=== PATIENT | female | born 1995 | race Caucasian/White ===

== ENCOUNTER 2017-12-13 18:36 | Emergency (ER) | payer OTHER ==
[~2017-12-13] VITALS: Ht 167.6 cm; Wt 66.7 kg
[~2017-12-13 18:36] MED LIST: AZIT250 PO; BENZ100A PO; HYDACE5 PO; IBUP400; METO10 PO; MULVITMINE PO; ONDA4 PO; PRENATAL CAPLE1 EACH PO; PROM25 PO; PROM25S PR; RXHYD5325 PO; RXONDA4ODT MM; VITAMIN B-650 MG; Zofran Odt4 MG SL
[2017-12-13 19:37] LABS: BASOPHILS ABSOLUTE AUTO 0.04 K/mm3 (0.00-0.23); BASOPHILS PERCENT AUTO 0 % (0-2); EOSINOPHILS ABSOLUTE AUTO 0.11 K/mm3 (0.00-0.68); EOSINOPHILS PERCENT AUTO 1 % (0-6); Hematocrit 40.9 % (33.0-51.0); Hemoglobin 13.6 g/dL (11.5-16.0); IMMATURE GRAN ABSOLUTE AUTO 0.03 K/mm3 (0.00-0.10); IMMATURE GRAN PERCENT AUTO 0 % (0-1); LYMPHOCYTES ABSOLUTE AUTO 1.87 K/mm3 (0.84-5.20); LYMPHOCYTES PERCENT AUTO 17 % (21-46); MONOCYTES ABSOLUTE AUTO 0.46 K/mm3 (0.16-1.47); MONOCYTES PERCENT AUTO 4 % (4-13); Mean Corpuscular HGB 29.1 pg (26.0-34.0); Mean Corpuscular HGB Conc 33.3 g/dL (31.5-36.5); Mean Corpuscular Volume 88 fL (80-100); Mean Platelet Volume 9.3 fL (9.1-12.4); NEUTROPHILS ABSOLUTE AUTO 8.34 K/mm3 (1.96-9.15); NEUTROPHILS PERCENT AUTO 77 % (41-73); Platelet Count 259 K/mm3 (150-400); RDW Coefficient Variation 12.2 % (11.7-14.2); RDW Standard Deviation 39.4 fL (35.1-46.3); Red Blood Cell Count 4.67 M/mm3 (3.80-5.20); White Blood Cell Count 10.85 K/mm3 (4.00-11.30)
[2017-12-13 19:59] LABS: Alanine Aminotransfer (ALT/SGP 21 U/L (12-78); Albumin, Blood 4.3 g/dL (3.4-5.0); Albumin/Globulin Ratio 1.1 (0.8-1.8); Alk Phos 73 U/L (50-136); Anion Gap 6 mmol/L (6-16); Aspartate Aminotrans (AST/SGOT 15 U/L (12-37); Beta HCG, Quantitative, Serum 184 mIU/mL (0-3); Bilirubin, Total 0.6 mg/dL (0.1-1.0); Blood Urea Nitrogen 11 mg/dL (8-24); Bun/Creatinine Ratio 21.2 (12.0-20.0); CO2, Blood 27 mmol/L (21-32); Calcium, Blood 9.1 mg/dL (8.5-10.1); Chloride, Blood 106 mmol/L (98-108); Creatinine, Blood 0.52 mg/dL (0.40-1.00); Globulin, Blood 3.8 g/dL (2.2-4.0); Glomerular Filtration Rate >60 (60-); Glucose, Blood 99 mg/dL (70-99); Potassium, Blood 3.9 mmol/L (3.5-5.5); Sodium, Blood 139 mmol/L (136-145); Total Protein, Blood 8.1 g/dL (6.4-8.2)
== END 2017-12-13 21:11 | disposition home or self-care (01) ==
LOC: ER 18:36
PROVIDERS: Emergency Medicine
DX: O20.0 Threatened abortion (principal); Z87.891 Personal history of nicotine dependence
CPT/HCPCS: 36415; 76801; 76817; 80053; 81025; 84702; 85025; 86900; 86901; 99284

== ENCOUNTER → 2019-01-18 | Outpatient (CLI) | payer OTHER ==
[~2019-01-18] MED LIST changes: +Norco 5-325 Ta1 EACH PO; +ONDA4ODT MM; +PENVK500 PO; +PROM25 PR; +Pepcid20 MG PO; +Protonix40 MG PO; +SUCR1 PO; +Zofran4 MG PO
[2019-01-21 07:12] LABS: CHLAMYDIA BY NAA Negative (Negative); GONOCOCCUS BY NAA Negative (Negative); TRICH VAG BY NAA Negative (Negative)
== END | disposition home or self-care (01) ==
LOC: LAB 14:15 → LAB SHORT 14:15
PROVIDERS: Advanced Practice Midwife
DX: Z11.3 Encounter for screening for infections with a predominantly sexual mode of transmission (principal)
CPT/HCPCS: 87491; 87591; 87661

== ENCOUNTER 2019-02-10 11:57 | Emergency (ER) | payer OTHER ==
[~2019-02-10] VITALS: Ht 167.6 cm; Wt 65.8 kg
[~2019-02-10 11:57] MED LIST changes: -Norco 5-325 Ta1 EACH PO; -ONDA4ODT MM; -PENVK500 PO; -PROM25 PR; -Pepcid20 MG PO; -Protonix40 MG PO; -SUCR1 PO; -Zofran4 MG PO
[2019-02-10] MEDS ORDERED: PENVK500 PO (13:08)
[2019-02-10] MEDS ORDERED: Norco 5-325 Ta1 EACH PO (13:09)
== END 2019-02-10 13:23 | disposition home or self-care (01) ==
LOC: ER 11:57
DX: K04.7 Periapical abscess without sinus (principal); K02.9 Dental caries, unspecified; Z87.891 Personal history of nicotine dependence
CPT/HCPCS: 99282

== ENCOUNTER 2019-02-26 18:31 | Emergency (ER) | payer OTHER ==
[~2019-02-26] VITALS: Ht 167.6 cm; Wt 65.8 kg
[~2019-02-26 18:31] MED LIST changes: +Norco 5-325 Ta1 EACH PO; +PENVK500 PO
[2019-02-26 19:19] LABS: BASOPHILS ABSOLUTE AUTO 0.02 K/mm3 (0.00-0.23); BASOPHILS PERCENT AUTO 0 % (0-2); EOSINOPHILS PERCENT AUTO 0 % (0-6); Hematocrit 38.4 % (33.0-51.0); Hemoglobin 12.7 g/dL (11.5-16.0); IMMATURE GRAN ABSOLUTE AUTO 0.04 K/mm3 (0.00-0.10); IMMATURE GRAN PERCENT AUTO 0 % (0-1); LYMPHOCYTES PERCENT AUTO 7 % (21-46); MONOCYTES ABSOLUTE AUTO 0.32 K/mm3 (0.16-1.47); MONOCYTES PERCENT AUTO 3 % (4-13); Mean Corpuscular HGB 29.4 pg (26.0-34.0); Mean Corpuscular HGB Conc 33.1 g/dL (31.5-36.5); Mean Corpuscular Volume 89 fL (80-100); Mean Platelet Volume 9.4 fL (9.1-12.4); NEUTROPHILS ABSOLUTE AUTO 11.71 K/mm3 (1.96-9.15); NEUTROPHILS PERCENT AUTO 90 % (41-73); Platelet Count 299 K/mm3 (150-400); RDW Coefficient Variation 12.2 % (11.7-14.2); RDW Standard Deviation 39.6 fL (35.1-46.3); Red Blood Cell Count 4.32 M/mm3 (3.80-5.20); White Blood Cell Count 12.99 K/mm3 (4.00-11.30)
[2019-02-26 19:38] LABS: Anion Gap 9 mmol/L (6-16); Blood Urea Nitrogen 11 mg/dL (8-24); Bun/Creatinine Ratio 21.3 (12.0-20.0); CO2, Blood 24 mmol/L (21-32); Calcium, Blood 9.1 mg/dL (8.5-10.1); Chloride, Blood 106 mmol/L (98-108); Creatinine, Blood 0.52 mg/dL (0.40-1.00); Glomerular Filtration Rate >60 (60-); Glucose, Blood 92 mg/dL (70-99); Magnesium, Blood 2.5 mg/dL (1.6-2.4); Sodium, Blood 139 mmol/L (136-145)
[2019-02-26] MEDS ORDERED: ONDA4ODT MM (21:12)
== END 2019-02-26 21:54 | disposition home or self-care (01) ==
LOC: ER 18:31
PROVIDERS: Physician Assistant
DX: R11.2 Nausea with vomiting, unspecified (principal)
CPT/HCPCS: 80048; 83735; 85025; 96361; 96374; 96375; 96376; 99283-25; J0780; J1200; J2405; J7030

== ENCOUNTER 2019-02-28 10:00 | Emergency (ER) | payer OTHER ==
[~2019-02-28] VITALS: Ht 167.6 cm; Wt 65.8 kg
[~2019-02-28 10:00] MED LIST changes: +ONDA4ODT MM
[2019-02-28 10:43] LABS: BASOPHILS ABSOLUTE AUTO 0.04 K/mm3 (0.00-0.23); BASOPHILS PERCENT AUTO 0 % (0-2); EOSINOPHILS PERCENT AUTO 1 % (0-6); Hematocrit 38.6 % (33.0-51.0); Hemoglobin 12.9 g/dL (11.5-16.0); IMMATURE GRAN ABSOLUTE AUTO 0.05 K/mm3 (0.00-0.10); IMMATURE GRAN PERCENT AUTO 1 % (0-1); LYMPHOCYTES ABSOLUTE AUTO 1.64 K/mm3 (0.84-5.20); LYMPHOCYTES PERCENT AUTO 16 % (21-46); MONOCYTES ABSOLUTE AUTO 0.64 K/mm3 (0.16-1.47); MONOCYTES PERCENT AUTO 6 % (4-13); Mean Corpuscular HGB 29.3 pg (26.0-34.0); Mean Corpuscular HGB Conc 33.4 g/dL (31.5-36.5); Mean Corpuscular Volume 88 fL (80-100); Mean Platelet Volume 9.4 fL (9.1-12.4); NEUTROPHILS ABSOLUTE AUTO 7.64 K/mm3 (1.96-9.15); NEUTROPHILS PERCENT AUTO 76 % (41-73); Platelet Count 282 K/mm3 (150-400); RDW Coefficient Variation 12.3 % (11.7-14.2); RDW Standard Deviation 39.7 fL (35.1-46.3); Red Blood Cell Count 4.41 M/mm3 (3.80-5.20); White Blood Cell Count 10.11 K/mm3 (4.00-11.30)
[2019-02-28 10:58] LABS: Alanine Aminotransfer (ALT/SGP 25 U/L (12-78); Albumin/Globulin Ratio 1.2 (0.8-1.8); Alk Phos 61 U/L (50-136); Anion Gap 7 mmol/L (6-16); Aspartate Aminotrans (AST/SGOT 14 U/L (12-37); Bilirubin, Total 0.5 mg/dL (0.1-1.0); Blood Urea Nitrogen 12 mg/dL (8-24); Bun/Creatinine Ratio 18.3 (12.0-20.0); CO2, Blood 25 mmol/L (21-32); Calcium, Blood 8.9 mg/dL (8.5-10.1); Chloride, Blood 108 mmol/L (98-108); Creatinine, Blood 0.65 mg/dL (0.40-1.00); Globulin, Blood 3.4 g/dL (2.2-4.0); Glomerular Filtration Rate >60 (60-); Glucose, Blood 111 mg/dL (70-99); Potassium, Blood 3.2 mmol/L (3.5-5.5); Sodium, Blood 140 mmol/L (136-145); Total Protein, Blood 7.4 g/dL (6.4-8.2)
[2019-02-28 10:59] LABS: Source, Urine Clean Catch
[2019-02-28 11:08] LABS: Appearance, Urine Clear (Clear); Bilirubin, Urine Neg (Neg); Blood, Urine Neg (Neg); Color, Urine Yellow (P-Yellow); Glucose Qualitative, Urine Neg (Neg); Ketones, Urine 2+ (Neg); Leukocyte Esterase, Urine 1+ (Neg); Nitrite, Urine Neg (Neg); Protein, Urine Neg (Neg); Specific Gravity, Urine 1.015 (1.003-1.022); Urobilinogen, Urine NORM (Normal)
[2019-02-28 11:31] LABS: Bacteria Few /hpf; Red Blood Cells, Urine 0-2 /hpf (0-2); Squamous Epithelial Cells Mod /hpf (Few)
[2019-02-28] MEDS ORDERED: Pepcid20 MG PO (13:18)
[2019-02-28] MEDS ORDERED: PROM25 PR (13:18)
[2019-03-01] MEDS ORDERED: Norco 5-325 Ta1 EACH PO (16:45)
== END 2019-02-28 13:29 | disposition home or self-care (01) ==
LOC: ER 10:00
PROVIDERS: Emergency Medicine
DX: K29.00 Acute gastritis without bleeding (principal); E87.6 Hypokalemia
CPT/HCPCS: 36415; 80053; 81001; 83690; 85025; 87086; 96361; 96374; 96375; 96376; 99283-25; J0780; J1200; J1630; J2405; J3010; J7030

== ENCOUNTER 2019-03-01 13:36 | Emergency (ER) | payer OTHER ==
[~2019-03-01] VITALS: Ht 167.6 cm; Wt 63.5 kg
[~2019-03-01 13:36] MED LIST changes: +PROM25 PR; +Pepcid20 MG PO
[2019-03-01 14:21] LABS: BASOPHILS ABSOLUTE AUTO 0.04 K/mm3 (0.00-0.23); BASOPHILS PERCENT AUTO 0 % (0-2); EOSINOPHILS ABSOLUTE AUTO 0.01 K/mm3 (0.00-0.68); EOSINOPHILS PERCENT AUTO 0 % (0-6); Hematocrit 42.4 % (33.0-51.0); Hemoglobin 14.2 g/dL (11.5-16.0); IMMATURE GRAN ABSOLUTE AUTO 0.05 K/mm3 (0.00-0.10); IMMATURE GRAN PERCENT AUTO 1 % (0-1); LYMPHOCYTES ABSOLUTE AUTO 2.49 K/mm3 (0.84-5.20); LYMPHOCYTES PERCENT AUTO 23 % (21-46); MONOCYTES ABSOLUTE AUTO 0.59 K/mm3 (0.16-1.47); MONOCYTES PERCENT AUTO 6 % (4-13); Mean Corpuscular HGB 29.8 pg (26.0-34.0); Mean Corpuscular HGB Conc 33.5 g/dL (31.5-36.5); Mean Corpuscular Volume 89 fL (80-100); Mean Platelet Volume 9.4 fL (9.1-12.4); NEUTROPHILS ABSOLUTE AUTO 7.61 K/mm3 (1.96-9.15); NEUTROPHILS PERCENT AUTO 70 % (41-73); Platelet Count 303 K/mm3 (150-400); RDW Coefficient Variation 11.9 % (11.7-14.2); RDW Standard Deviation 38.8 fL (35.1-46.3); Red Blood Cell Count 4.76 M/mm3 (3.80-5.20); White Blood Cell Count 10.79 K/mm3 (4.00-11.30)
[2019-03-01 14:33] LABS: Source, Urine Clean Catch
[2019-03-01 14:36] LABS: Alanine Aminotransfer (ALT/SGP 30 U/L (12-78); Albumin, Blood 4.5 g/dL (3.4-5.0); Albumin/Globulin Ratio 1.1 (0.8-1.8); Alk Phos 71 U/L (50-136); Anion Gap 9 mmol/L (6-16); Aspartate Aminotrans (AST/SGOT 21 U/L (12-37); Bilirubin, Total 1.2 mg/dL (0.1-1.0); Blood Urea Nitrogen 8 mg/dL (8-24); Bun/Creatinine Ratio 13.9 (12.0-20.0); CO2, Blood 25 mmol/L (21-32); Calcium, Blood 9.2 mg/dL (8.5-10.1); Chloride, Blood 102 mmol/L (98-108); Creatinine, Blood 0.58 mg/dL (0.40-1.00); Glomerular Filtration Rate >60 (60-); Glucose, Blood 83 mg/dL (70-99); Potassium, Blood 3.2 mmol/L (3.5-5.5); Sodium, Blood 136 mmol/L (136-145); Total Protein, Blood 8.5 g/dL (6.4-8.2)
[2019-03-01 14:40] LABS: Bilirubin, Urine Neg (Neg); Blood, Urine 1+ (Neg); Glucose Qualitative, Urine Neg (Neg); Ketones, Urine 4+ (Neg); Leukocyte Esterase, Urine 3+ (Neg); Nitrite, Urine Neg (Neg); Protein, Urine Neg (Neg); Urobilinogen, Urine 1+ (Normal)
[2019-03-01 14:50] LABS: Appearance, Urine Clear (Clear); Color, Urine Yellow (P-Yellow)
[2019-03-01 14:51] LABS: Bacteria Few /hpf; Red Blood Cells, Urine 0-2 /hpf (0-2); Squamous Epithelial Cells Many /hpf (Few)
[2019-03-01 14:52] LABS: Mucus Light (0-Heavy)
[2019-03-01] MEDS ORDERED: Norco 5-325 Ta1 EACH PO (16:45)
== END 2019-03-01 16:53 | disposition home or self-care (01) ==
LOC: ER 13:36
PROVIDERS: Physician Assistant
DX: R10.9 Unspecified abdominal pain (principal); R11.2 Nausea with vomiting, unspecified
CPT/HCPCS: 36415; 74176; 80053; 81001; 81025; 83690; 85025; 87086; 96365; 96375; 99284-25; J1170; J1200; J2550; J3475; J7030

== ENCOUNTER 2019-03-06 18:31 | Emergency (ER) | payer OTHER ==
[~2019-03-06] VITALS: Ht 167.6 cm; Wt 63.5 kg
[2019-03-06] MEDS ORDERED: SUCR1 PO (19:57)
[2019-03-06] MEDS ORDERED: Zofran4 MG PO (19:57)
[2019-03-06] MEDS ORDERED: Norco 5-325 Ta1 EACH PO (19:57)
[2019-03-06] MEDS ORDERED: Protonix40 MG PO (19:57)
== END 2019-03-06 20:20 | disposition home or self-care (01) ==
LOC: ER 18:31
DX: K29.70 Gastritis, unspecified, without bleeding (principal)
CPT/HCPCS: 96374; 96375; 99283-25; A9270; C9113; J1170; J2405

== ENCOUNTER 2019-03-08 11:35 | Emergency (ER) | payer OTHER ==
[~2019-03-08] VITALS: Ht 167.6 cm; Wt 63.5 kg
[~2019-03-08 11:35] MED LIST changes: +Protonix40 MG PO; +SUCR1 PO; +Zofran4 MG PO
[2019-03-08 13:00] LABS: BASOPHILS ABSOLUTE AUTO 0.04 K/mm3 (0.00-0.23); BASOPHILS PERCENT AUTO 0 % (0-2); EOSINOPHILS ABSOLUTE AUTO 0.17 K/mm3 (0.00-0.68); EOSINOPHILS PERCENT AUTO 2 % (0-6); Hemoglobin 13.3 g/dL (11.5-16.0); IMMATURE GRAN ABSOLUTE AUTO 0.03 K/mm3 (0.00-0.10); IMMATURE GRAN PERCENT AUTO 0 % (0-1); LYMPHOCYTES ABSOLUTE AUTO 2.58 K/mm3 (0.84-5.20); LYMPHOCYTES PERCENT AUTO 23 % (21-46); MONOCYTES ABSOLUTE AUTO 0.84 K/mm3 (0.16-1.47); MONOCYTES PERCENT AUTO 7 % (4-13); Mean Corpuscular HGB 29.4 pg (26.0-34.0); Mean Corpuscular HGB Conc 32.4 g/dL (31.5-36.5); Mean Corpuscular Volume 91 fL (80-100); Mean Platelet Volume 9.9 fL (9.1-12.4); NEUTROPHILS ABSOLUTE AUTO 7.71 K/mm3 (1.96-9.15); NEUTROPHILS PERCENT AUTO 68 % (41-73); Platelet Count 301 K/mm3 (150-400); RDW Coefficient Variation 12.3 % (11.7-14.2); RDW Standard Deviation 41.1 fL (35.1-46.3); Red Blood Cell Count 4.53 M/mm3 (3.80-5.20); White Blood Cell Count 11.37 K/mm3 (4.00-11.30)
[2019-03-08 13:06] LABS: Anion Gap 9 mmol/L (6-16); Blood Urea Nitrogen 7 mg/dL (8-24); CO2, Blood 24 mmol/L (21-32); Calcium, Blood 9.4 mg/dL (8.5-10.1); Chloride, Blood 108 mmol/L (98-108); Creatinine, Blood 0.64 mg/dL (0.40-1.00); Glomerular Filtration Rate >60 (60-); Glucose, Blood 90 mg/dL (70-99); Potassium, Blood 3.9 mmol/L (3.5-5.5); Sodium, Blood 141 mmol/L (136-145)
== END 2019-03-08 15:29 | disposition home or self-care (01) ==
LOC: ER 11:35
PROVIDERS: Emergency Medicine
DX: K29.00 Acute gastritis without bleeding (principal); Z79.899 Other long term (current) drug therapy
CPT/HCPCS: 36415; 80048; 85025; 96361; 96374; 96375; 99284-25; J1200; J1630; J3010; J7030

== ENCOUNTER → 2019-03-10 | Outpatient (CLI) | payer OTHER | END | disposition home or self-care (01) | LOC: LAB EV 18:28 → LAB SHORT 18:28 | DX: N39.0 Urinary tract infection, site not specified (principal) | CPT/HCPCS: 87077; 87086; 87186 ==

== ENCOUNTER → 2019-04-13 | Outpatient (CLI) | payer OTHER | END | disposition home or self-care (01) | LOC: LAB SHORT 17:02 → LAB 17:02 | DX: T24.239A Burn of second degree of unspecified lower leg, initial encounter (principal) | CPT/HCPCS: 87070; 87075; 87077; 87147; 87186; 87205 ==

== ENCOUNTER 2019-08-12 08:07 | Day surgery (SDC) | payer OTHER ==
[~2019-08-12] VITALS: Ht 167.6 cm; Wt 73.1 kg
--- NOTE | 2019-08-12 10:52 | NUR ---
08/12/19 1052 [facility] [place] PT. DENIES NAUSEA OR PAIN POST UPPER ENDO.
== END 2019-08-12 10:58 | disposition home or self-care (01) ==
LOC: ORSCSDS 08:07
PROVIDERS: Internal Medicine Gastroenterology
PROC: 0DB68ZX Excision of Stomach, Via Natural or Artificial Opening Endoscopic, Diagnostic (ICD-10-PCS; principal; 2019-08-12 09:30)
PROC: 0DB98ZX Excision of Duodenum, Via Natural or Artificial Opening Endoscopic, Diagnostic (ICD-10-PCS; principal; 2019-08-12 09:30)
DX: D64.9 Anemia, unspecified (principal); K21.9 Gastro-esophageal reflux disease without esophagitis; R11.2 Nausea with vomiting, unspecified; K92.1 Melena; K29.80 Duodenitis without bleeding; K20.8 Other esophagitis; F41.8 Other specified anxiety disorders; Z79.899 Other long term (current) drug therapy
CPT/HCPCS: 88305; 88342; J2250; J2405; J2704; J7120

== ENCOUNTER 2020-05-20 11:00 | Emergency (ER) | payer OTHER ==
[~2020-05-20] VITALS: Ht 167.6 cm; Wt 72.6 kg
[~2020-05-20 11:00] MED LIST changes: +Roxicodone5 MG PO
[2020-05-20 11:32] LABS: BASOPHILS ABSOLUTE AUTO 0.04 K/mm3 (0.00-0.23); BASOPHILS PERCENT AUTO 1 % (0-2); EOSINOPHILS ABSOLUTE AUTO 0.36 K/mm3 (0.00-0.68); EOSINOPHILS PERCENT AUTO 5 % (0-6); Hematocrit 42.6 % (33.0-51.0); IMMATURE GRAN ABSOLUTE AUTO 0.01 K/mm3 (0.00-0.10); IMMATURE GRAN PERCENT AUTO 0 % (0-1); LYMPHOCYTES ABSOLUTE AUTO 2.17 K/mm3 (0.84-5.20); LYMPHOCYTES PERCENT AUTO 32 % (21-46); MONOCYTES ABSOLUTE AUTO 0.49 K/mm3 (0.16-1.47); MONOCYTES PERCENT AUTO 7 % (4-13); Mean Corpuscular HGB 29.5 pg (26.0-34.0); Mean Corpuscular HGB Conc 32.9 g/dL (31.5-36.5); Mean Corpuscular Volume 90 fL (80-100); Mean Platelet Volume 9.3 fL (9.1-12.4); NEUTROPHILS ABSOLUTE AUTO 3.63 K/mm3 (1.96-9.15); NEUTROPHILS PERCENT AUTO 54 % (41-73); Platelet Count 297 K/mm3 (150-400); RDW Coefficient Variation 11.7 % (11.7-14.2); RDW Standard Deviation 38.3 fL (35.1-46.3); Red Blood Cell Count 4.75 M/mm3 (3.80-5.20)
[2020-05-20] MEDS ORDERED: PRENATAL TABLE1 EAC2 PO (11:44)
[2020-05-20 11:59] LABS: Beta HCG, Quantitative, Serum 815 mIU/mL (0-3)
[2020-05-20 12:00] LABS: Alanine Aminotransfer (ALT/SGP 26 U/L (12-78); Albumin/Globulin Ratio 1.1 (0.8-1.8); Alk Phos 47 U/L (50-136); Anion Gap 6 mmol/L (6-16); Aspartate Aminotrans (AST/SGOT 19 U/L (12-37); Bilirubin, Total 0.8 mg/dL (0.1-1.0); Blood Urea Nitrogen 8 mg/dL (8-24); Bun/Creatinine Ratio 15.5 (12.0-20.0); CO2, Blood 23 mmol/L (21-32); Calcium, Blood 8.9 mg/dL (8.5-10.1); Chloride, Blood 109 mmol/L (98-108); Creatinine, Blood 0.52 mg/dL (0.40-1.00); Globulin, Blood 3.7 g/dL (2.2-4.0); Glomerular Filtration Rate >60 (60-); Glucose, Blood 92 mg/dL (70-99); Potassium, Blood 3.6 mmol/L (3.5-5.5); Sodium, Blood 138 mmol/L (136-145); Total Protein, Blood 7.7 g/dL (6.4-8.2)
[2020-05-20] MEDS ORDERED: Norco 5-325 Ta1 EACH PO (13:56)
== END 2020-05-20 14:06 | disposition home or self-care (01) ==
LOC: ER 11:00
PROVIDERS: Physician Assistant
DX: O20.0 Threatened abortion (principal); Z3A.01 Less than 8 weeks gestation of pregnancy
CPT/HCPCS: 36415; 76801; 76817; 80053; 84702; 85025; 86900; 86901; 99284-25; A9270; A9270-GY

== ENCOUNTER → 2020-09-18 | Outpatient (CLI) | payer OTHER ==
[~2020-09-18] MED LIST changes: +ACET325 PO; +Acetaminophen325 M1 PO; +DICLEGIS DR 101 EAC1 PO; +HYDR1TAB94 PO; +METO5A PO; +OXYC5 PO; +PHENERGAN25 MG PR; +PRENATAL TABLE1 EAC2 PO
[2020-09-21 02:07] LABS: CHLAMYDIA TRACHOMATIS, NAA Negative (Negative)
== END ==
LOC: PLD 18:11 → LAB SHORT 18:11
PROVIDERS: Registered Nurse Community Health
DX: Z34.91 Encounter for supervision of normal pregnancy, unspecified, first trimester (principal)
CPT/HCPCS: 87491; 87591

== ENCOUNTER 2020-10-29 10:42 | Observation (INO) | payer OTHER ==
[~2020-10-29] VITALS: Ht 165.1 cm; Wt 82.3 kg
[~2020-10-29 10:42] MED LIST changes: -Acetaminophen325 M1 PO; -DICLEGIS DR 101 EAC1 PO; -METO5A PO; -PHENERGAN25 MG PR
[2020-10-29] MEDS ORDERED: METO5A PO (10:51)
[2020-10-29 11:42] LABS: BASOPHILS ABSOLUTE AUTO 0.03 K/mm3 (0.00-0.23); BASOPHILS PERCENT AUTO 0 % (0-2); EOSINOPHILS ABSOLUTE AUTO 0.14 K/mm3 (0.00-0.68); EOSINOPHILS PERCENT AUTO 2 % (0-6); Hematocrit 39.2 % (33.0-51.0); Hemoglobin 13.6 g/dL (11.5-16.0); IMMATURE GRAN ABSOLUTE AUTO 0.03 K/mm3 (0.00-0.10); IMMATURE GRAN PERCENT AUTO 0 % (0-1); LYMPHOCYTES ABSOLUTE AUTO 2.11 K/mm3 (0.84-5.20); LYMPHOCYTES PERCENT AUTO 23 % (21-46); MONOCYTES ABSOLUTE AUTO 0.42 K/mm3 (0.16-1.47); MONOCYTES PERCENT AUTO 5 % (4-13); Mean Corpuscular HGB Conc 34.7 g/dL (31.5-36.5); Mean Corpuscular Volume 86 fL (80-100); Mean Platelet Volume 9.6 fL (9.1-12.4); NEUTROPHILS ABSOLUTE AUTO 6.41 K/mm3 (1.96-9.15); NEUTROPHILS PERCENT AUTO 70 % (41-73); Platelet Count 267 K/mm3 (150-400); RDW Coefficient Variation 12.3 % (11.7-14.2); RDW Standard Deviation 38.6 fL (35.1-46.3); Red Blood Cell Count 4.54 M/mm3 (3.80-5.20); White Blood Cell Count 9.14 K/mm3 (4.00-11.30)
[2020-10-29 12:01] LABS: Alanine Aminotransfer (ALT/SGP 32 U/L (12-78); Albumin, Blood 3.7 g/dL (3.4-5.0); Albumin/Globulin Ratio 0.9 (0.8-1.8); Alk Phos 59 U/L (50-136); Anion Gap 11 mmol/L (6-16); Aspartate Aminotrans (AST/SGOT 17 U/L (12-37); Bilirubin, Total 0.7 mg/dL (0.1-1.0); Blood Urea Nitrogen 7 mg/dL (8-24); Bun/Creatinine Ratio 15.1 (12.0-20.0); CO2, Blood 22 mmol/L (21-32); Calcium, Blood 9.6 mg/dL (8.5-10.1); Chloride, Blood 107 mmol/L (98-108); Creatinine, Blood 0.46 mg/dL (0.40-1.00); Globulin, Blood 4.2 g/dL (2.2-4.0); Glomerular Filtration Rate >60 (60-); Glucose, Blood 106 mg/dL (70-99); Potassium, Blood 3.5 mmol/L (3.5-5.5); Sodium, Blood 140 mmol/L (136-145); Total Protein, Blood 7.9 g/dL (6.4-8.2)
[2020-10-29 14:29] LABS: Source, Urine Voided
[2020-10-29 14:34] LABS: Appearance, Urine Turbid (Clear); Bilirubin, Urine Neg (Neg); Blood, Urine Neg (Neg); Color, Urine Yellow (P-Yellow); Glucose Qualitative, Urine Neg (Neg); Ketones, Urine 4+ (Neg); Leukocyte Esterase, Urine Neg (Neg); Nitrite, Urine Neg (Neg); Protein, Urine 1+ (Neg); Specific Gravity, Urine 1.015 (1.003-1.022); Urobilinogen, Urine 1+ (Normal)
[2020-10-29 14:48] LABS: Red Blood Cells, Urine 0-2 /hpf (0-2); Squamous Epithelial Cells Few /hpf (Few)
[2020-10-29 14:49] LABS: Amorphous Heavy (0-Heavy); Bacteria Few /hpf; Mucus Light (0-Heavy)
--- NOTE | 2020-10-29 20:08 | NUR ---
PATIENT BEING ADMITTED TO THE FLOOR FOR N/V SINCE 4 AM THIS MORNING. SHE HAS HYPEREMESIS AND IS 13 WEEKS . AOX3, INDEPENDENT IN THE ROOM. MODERATE NAUSEA AT THIS TIME. STATES THE MEDS ARE NOT REALLY TAKING IT AWAY. STATES SHE FEEL LIKE SHE STILL CAN THROW UP ALL THE TIME. ABDOMINAL PAIN IN THE UPPER QUADRANTS, HYPOACTIVE BT. EMESIS IS A BROWN BILE. APPETITE IS POOR. IS NOT ABLE TO HOLD ANYTHING DOWN. WILL ADDRESS MEDS AND PROVIDE CARE. CALL LIGHT IS IN REACH.
[2020-10-30 05:39] LABS: BASOPHILS ABSOLUTE AUTO 0.01 K/mm3 (0.00-0.23); BASOPHILS PERCENT AUTO 0 % (0-2); EOSINOPHILS PERCENT AUTO 0 % (0-6); Hemoglobin 11.3 g/dL (11.5-16.0); IMMATURE GRAN ABSOLUTE AUTO 0.05 K/mm3 (0.00-0.10); IMMATURE GRAN PERCENT AUTO 0 % (0-1); LYMPHOCYTES ABSOLUTE AUTO 1.41 K/mm3 (0.84-5.20); LYMPHOCYTES PERCENT AUTO 11 % (21-46); MONOCYTES ABSOLUTE AUTO 0.57 K/mm3 (0.16-1.47); MONOCYTES PERCENT AUTO 5 % (4-13); Mean Corpuscular HGB 30.3 pg (26.0-34.0); Mean Corpuscular HGB Conc 35.3 g/dL (31.5-36.5); Mean Corpuscular Volume 86 fL (80-100); Mean Platelet Volume 9.8 fL (9.1-12.4); NEUTROPHILS ABSOLUTE AUTO 10.54 K/mm3 (1.96-9.15); NEUTROPHILS PERCENT AUTO 84 % (41-73); Platelet Count 246 K/mm3 (150-400); RDW Coefficient Variation 12.3 % (11.7-14.2); RDW Standard Deviation 38.5 fL (35.1-46.3); Red Blood Cell Count 3.73 M/mm3 (3.80-5.20); White Blood Cell Count 12.58 K/mm3 (4.00-11.30)
[2020-10-30 05:53] LABS: Anion Gap 10 mmol/L (6-16); Blood Urea Nitrogen 4 mg/dL (8-24); Bun/Creatinine Ratio 10.4 (12.0-20.0); CO2, Blood 20 mmol/L (21-32); Calcium, Blood 8.5 mg/dL (8.5-10.1); Chloride, Blood 109 mmol/L (98-108); Creatinine, Blood 0.39 mg/dL (0.40-1.00); Glomerular Filtration Rate >60 (60-); Glucose, Blood 103 mg/dL (70-99); Potassium, Blood 3.1 mmol/L (3.5-5.5); Sodium, Blood 139 mmol/L (136-145)
--- NOTE | 2020-10-30 05:53 | NUR ---
SHIFT SUMMARY: PATIENT ADMITTED [facility] AROUND 1999 FOR HYPEREMESIS THAT STARTED AROUND 0400 YESTERDAY. 13 WKS , WITH HISTORY OF HYPEREMSIS WITH OTHER PREGNANCIES, POOR APPETITE, NO INTAKE SINCE STARTED. MILD SIPS OF WATER OR APPLE JUICE BUT TENDS TO HAVE EMESIS RIGHT AFTER. DEHYDRATED WITH ONLY 2 UNMEASURED VOIDS, SHE REMOVED HAT, AND 1 INCONTIENT VOID. 500ML OF EMESIS. DRY HEVES HAVE DECREASED SINCE ZOFRAN WAS INCREASED TO 8MG AND LR WAS STARTED. ABDOMINAL PAIN IN UPPER QUADRANTS, CRAMPING. HAVE GIVEN 2MG OF MORPHINE X2 THIS SHIFT. THIS HELPED HER TO SLEEP SOME BUT NAUSEA IS PRESISTENT AND TENDS TO WAKE HER UP. RENDERING EQUIPMENT TENDER CONSULT CALLED IN, SPOKE TO DR. MCKENZIE REGARDING CONDITION. IVF INTAKE OF 1047. FEBRILE IN THE 99'S. TACHYCARDIC IN THE 100'S, REST OF VITALS NORMAL. WBC 12.58. HAVE BEEN ALTERNATING BETWEEEN ZOFRAN AND REGLAN TO HELP KEEP NAUSEA LEVEL DOWN. AFTER IS 2 HOURS BEFORE IT STARTS TO RETURN. WILL PASS ONTO DAY SHIFT PLAN OF CARE AND TREATMENT. CALL LIGHT IS IN REACH.
[2020-10-30 09:12] LABS: Ketones, Urine 1+ (Neg)
[2020-10-30] MEDS ORDERED: Acetaminophen325 M1 PO (15:46)
[2020-10-30] MEDS ORDERED: ONDA4ODT MM (15:47)
[2020-10-30] MEDS ORDERED: PROM25 PO (15:47)
--- NOTE | 2020-10-30 16:47 | NUR ---
PT DISCHARGED THE PT VERBALIZED UNDERSTANDING OF THE DC INSTRUCTIONS, A FOLLOW APPOINTMENT WAS MADE FOR HER TO FOLLOW UP WITH HER PCP, THE PT REPORTED THAT SHE FELT MUCH LESS NAUSATED AND FELT SHE WAS READY FOR DISCHARGE, THE PT APPEARED TO BE BREATHING EASILY AT THE TIME OF DC, PRESCRIPTIONS FAXED TO THE PTS REQUESTED PHARMACY, PT DECLINED A WHEELCHAIR AND AMBULATED OUT WITH HER SO
[2020-10-31] MEDS ORDERED: PHENERGAN25 MG PR (14:28)
[2020-10-31] MEDS ORDERED: DICLEGIS DR 101 EAC1 PO (14:28)
== END 2020-10-30 16:16 | disposition home or self-care (01) ==
LOC: ER 10:42 → MEDS 10:43
PROVIDERS: Emergency Medicine; Registered Nurse Community Health; ADMIT Internal Medicine
DX: O21.1 Hyperemesis gravidarum with metabolic disturbance (principal); Z3A.13 13 weeks gestation of pregnancy; E86.0 Dehydration
CPT/HCPCS: 36415; 80048; 80053; 81001; 81003; 83690; 84703; 85025; 96361; 96374; 96375; 96376; 99285-25; A9270; G0378; J1200; J2270; J2405; J2550; J2765; J3480; J7030; J7060; J7120; J7121

== ENCOUNTER 2020-11-01 09:21 | Inpatient (IN) | payer OTHER ==
[~2020-11-01] VITALS: Ht 165.1 cm; Wt 77.1 kg
[~2020-11-01 09:21] MED LIST changes: +Acetaminophen325 M1 PO; +DICLEGIS DR 101 EAC1 PO; +METO5A PO; +PHENERGAN25 MG PR
[2020-11-01 10:20] LABS: Calcium, Ionized (POC) 1.12 mmol/L (1.10-1.46); Chloride (POC) 106 mmol/L (98-108); Creatinine (POC) 0.4 mg/dL (0.6-1.0); Glucose (ISTAT POC) 100 mg/dL (70-99); Hemoglobin (POC) 12.6 g/dL (12.0-16.0); Potassium (POC) 2.8 mmol/L (3.5-5.5); Sodium (POC) 138 mmol/L (135-148); Total CO2 (POC) 19 mmol/L (21-32)
--- NOTE | 2020-11-01 18:06 | NUR ---
1747 TO ROOM ACCOMPANIED BY SIGNIFICANT OTHER. PT CHEERFUL, SMILING AND REPORTS FEELS AMAZINGLY BETTER AFTER RECEIVING CARAFATE. CALL LIGHT IN REACH. PT DENIES ANY NEEDS AT THIS TIME
--- NOTE | 2020-11-01 19:44 | NUR ---
BEDSIDE REPORT RECEIVED. PT HAD JUST HAD EPISODE OF APPX 100ML COFFEE GROUND EMESIS. PT VERY RESTLESS AND PAINFUL. PT REPORTIING UPPER ABD PAIN 20/10. PT VITALS OBTAINED, ALL WNL X TEMP ELEVATED TO 100.2, EMILE MCKENZIE IN ROOM W/PT. NEW ORDERS OBTAINED, PT MEDICATED, PER EMAR. WILL CLOSELY MONITOR AND NOTIFY PROVIDER FOR ADDITIONAL CONCERNS.
--- NOTE | 2020-11-01 19:48 | NUR ---
1854 PT REPORTS SEVERE ABD PAIN "MORE THAN 10/10" , RETCHING WITH 100 ML COFFEE GROUND EMESIS AFTER TAKING 1/2 POPSICLE CALL PLACED TO NATHEN MCKENZIE TO DISCUSS PATIENTS PAIN AND EMESIS. NEW ORDERS TO BE ENTERED BY CHASITY MCKENZIE
[2020-11-01 19:53] LABS: Ketones, Urine 4+ (Neg)
--- NOTE | 2020-11-01 20:56 | NUR ---
PT STILL C/O PAIN AND NAUSEA, BUT DOES APPEAR MORE RELAXED. PT REP PAIN NOW 02/16. NO CHANGE IN ABD DISTENTION. PT RESTING IN BED ATTENPTING TO SLEEP.
[2020-11-01 22:31] LABS: BASOPHILS ABSOLUTE AUTO 0.01 K/mm3 (0.00-0.23); BASOPHILS PERCENT AUTO 0 % (0-2); EOSINOPHILS PERCENT AUTO 0 % (0-6); Hematocrit 33.2 % (33.0-51.0); Hemoglobin 11.6 g/dL (11.5-16.0); IMMATURE GRAN ABSOLUTE AUTO 0.04 K/mm3 (0.00-0.10); IMMATURE GRAN PERCENT AUTO 0 % (0-1); LYMPHOCYTES ABSOLUTE AUTO 1.06 K/mm3 (0.84-5.20); LYMPHOCYTES PERCENT AUTO 10 % (21-46); MONOCYTES ABSOLUTE AUTO 0.15 K/mm3 (0.16-1.47); MONOCYTES PERCENT AUTO 1 % (4-13); Mean Corpuscular HGB 30.1 pg (26.0-34.0); Mean Corpuscular HGB Conc 34.9 g/dL (31.5-36.5); Mean Corpuscular Volume 86 fL (80-100); Mean Platelet Volume 9.7 fL (9.1-12.4); NEUTROPHILS ABSOLUTE AUTO 9.91 K/mm3 (1.96-9.15); NEUTROPHILS PERCENT AUTO 89 % (41-73); Platelet Count 250 K/mm3 (150-400); RDW Coefficient Variation 12.1 % (11.7-14.2); RDW Standard Deviation 38.4 fL (35.1-46.3); Red Blood Cell Count 3.85 M/mm3 (3.80-5.20); White Blood Cell Count 11.17 K/mm3 (4.00-11.30)
--- NOTE | 2020-11-01 22:47 | NUR ---
PT SITTING UP IN BED SMILING, CONVERSING W/SIG OTHER. PT CONT TO REP NAUSEA AND UPPER ABD PAIN/THROAT PAIN, BUT REP FEELING "MUCH BETTER" AT THIS TIME. PRN MEDS REV W/PT, PLAN TO MONITOR AND TX PER ORDERS.
[2020-11-01 22:51] LABS: Alanine Aminotransfer (ALT/SGP 115 U/L (12-78); Albumin, Blood 3.1 g/dL (3.4-5.0); Albumin/Globulin Ratio 0.9 (0.8-1.8); Alk Phos 59 U/L (50-136); Anion Gap 8 mmol/L (6-16); Aspartate Aminotrans (AST/SGOT 50 U/L (12-37); Bilirubin, Total 0.8 mg/dL (0.1-1.0); Blood Urea Nitrogen 2 mg/dL (8-24); Bun/Creatinine Ratio 4.7 (12.0-20.0); CO2, Blood 22 mmol/L (21-32); Calcium, Blood 8.2 mg/dL (8.5-10.1); Chloride, Blood 111 mmol/L (98-108); Creatinine, Blood 0.42 mg/dL (0.40-1.00); Globulin, Blood 3.5 g/dL (2.2-4.0); Glomerular Filtration Rate >60 (60-); Glucose, Blood 93 mg/dL (70-99); Potassium, Blood 3.4 mmol/L (3.5-5.5); Sodium, Blood 141 mmol/L (136-145); Total Protein, Blood 6.6 g/dL (6.4-8.2)
--- NOTE | 2020-11-01 22:59 | NUR ---
PT STATUS REVIEWED W/CHASITY MCKENZIE. PT PAIN/NAUSEA, MEDS, LABS AND VS REVIEWED. NEW ORDER FOR BENHAILEYRYL REC. PLAN TO CLOSELY MONITOR AND NOTIFY FOR CONCERNS.
--- NOTE | 2020-11-02 02:30 | NUR ---
PT REP HAVING 1 SMALL EMESIS THAT WAS CLEAR/YELLOW IN COLOR. PT REP HAVING DUMPED IT BEFORE STAFF COULD VISUALIZE. PT EDUCATED TO NOTIFY STAFF NEXT TIME SO IT CAN BE VISUALIZED.
--- NOTE | 2020-11-02 05:47 | NUR ---
PT VSS T/O NIGHT. SEVERE ABD PAIN APEARS TO HAVE RESOLVED; PT REP PAIN HIGH 7/10 FOR MOST OF NIGHT. PT CONT TO STRUGGLE W/NAUSEA, REP 1 EPISODE OF CLEAR/YELLOW EMESIS. NAUSEA MGD PER EMAR, PT REP BEST RELIEF W/BENADRYL AND PHENERGAN COMBO. PT VOIDING URINE W/O DIFFICULTY, NO VAGINAL BLEEDING REPORTED. PT NPO X FEW ICE CHIPS, IVF CONT PER ORDERS. PT UP OOB W/SBA, DENIES DIZZINESS WHEN UP. SIG OTHER PRESENT/SUPPORTIVE IN ROOM T/O NIGHT.
[2020-11-02 12:29] LABS: Ketones, Urine 3+ (Neg)
--- NOTE | 2020-11-02 18:04 | NUR ---
SUMMARY PT REPORTS ABD PAIN 5-8/10 LYING WITH EYES CLOSED AFTER MEDICATED FOR PAIN. PT TAKING SMALL AMOUNTS ICE CHIPS. MEDICATED X1 FOR NAUSEA WITH GOOD RELIEF. CHASITY IN PLACE TO MIDLINE ABD
--- NOTE | 2020-11-02 18:11 | NUR ---
SUMMARY INTERMITTENT NAUSEA THROUGHOUT SHIFT WITHOUT EMESIS OR RETCHING. PT REPORTS ABD PAIN HAS BEEN 5 OR LESS THROUGHOUT SHIFT. PT AMBULATING IN ROOM, VOIDING CLEAR YELLOW URINE. PTS SIGNIFICANT OTHER AT BEDSIDE MUCH OF SHIFT AND ATTENTIVE TO PATIENT, PT DENIES ANY VAGINAL DRAINAGE. ONE EPISODE OF LIQUID STOOL WHICH SHE DESCRIBED LOOKING LIKE BILE. PT TAKING SMALL SIPS OF WATER AND JUICE AND VERY SMALL AMOUNT OF APPLESAUCE. PT REPORTS APPLESAUCE CAUSED BURNING IN THROAT AND INCREASED ABD PAIN AND NAUSEA. PT 2 TEARFUL EPISODES WHICH SHE TELLS ME SHE IS TIRED, FRUSTRATED AND HUNGRY. SMILING AND APPRECIATIVE OF CARE MUCH OF SHIFT.
--- NOTE | 2020-11-03 06:03 | NUR ---
SHIFT SUMMARY: CLARA IS A&OX4. VSS, NO ACUTE EVENTS OVERNIGHT. SHE REPORTS IMPROVEMENT IN THE NAUSEA THIS AM. SHE STATES THAT SHE WAS ABLE TO SLEEP FOR AWHILE AFTER THE ADMINISTRATION OF AMBIEN. SHE REPORTS ADEQUATE PAIN CONTROL WITH THE MORPHINE AND ATTRIBUTES THE SEVERITY OF THE NAUSEA TO THE PAIN. SIGNIFICANT OTHER AT BEDSIDE. IV TO L AC PATENT. SHE IS INDEPENDENT TO THE BATHROOM. SHE IS LYING IN BED WITH THE CALL LIGHT IN REACH. WILL REPORT TO DAY SHIFT RN.
--- NOTE | 2020-11-03 07:48 | NUR ---
SPOKE WITH NATHEN MCKENZIE REGARDING LOW BLOOD PRESSURES THIS AM. ORDERS RECIEVED FOR CBC AND CMP
--- NOTE | 2020-11-03 07:49 | NUR ---
SPOKE WITH NATHEN MCKENZIE REGARDING LOW BLOOD PRESSURES THIS AM. ORDERS RECIEVED FOR CBC AND BMP WITH A REPEAT URINE KETONES. PT CURRENTLY RESTING IN BED. AA0X4, DENIES SOB OR LIGHT HEADEDNESS.
[2020-11-03 08:19] LABS: BASOPHILS ABSOLUTE AUTO 0.02 K/mm3 (0.00-0.23); BASOPHILS PERCENT AUTO 0 % (0-2); EOSINOPHILS ABSOLUTE AUTO 0.12 K/mm3 (0.00-0.68); EOSINOPHILS PERCENT AUTO 2 % (0-6); Hematocrit 28.3 % (33.0-51.0); Hemoglobin 9.8 g/dL (11.5-16.0); IMMATURE GRAN ABSOLUTE AUTO 0.03 K/mm3 (0.00-0.10); IMMATURE GRAN PERCENT AUTO 0 % (0-1); LYMPHOCYTES ABSOLUTE AUTO 2.57 K/mm3 (0.84-5.20); LYMPHOCYTES PERCENT AUTO 36 % (21-46); MONOCYTES ABSOLUTE AUTO 0.54 K/mm3 (0.16-1.47); MONOCYTES PERCENT AUTO 8 % (4-13); Mean Corpuscular HGB 30.2 pg (26.0-34.0); Mean Corpuscular HGB Conc 34.6 g/dL (31.5-36.5); Mean Corpuscular Volume 87 fL (80-100); Mean Platelet Volume 10.2 fL (9.1-12.4); NEUTROPHILS ABSOLUTE AUTO 3.79 K/mm3 (1.96-9.15); NEUTROPHILS PERCENT AUTO 54 % (41-73); Platelet Count 211 K/mm3 (150-400); RDW Coefficient Variation 12.5 % (11.7-14.2); RDW Standard Deviation 39.8 fL (35.1-46.3); Red Blood Cell Count 3.25 M/mm3 (3.80-5.20); White Blood Cell Count 7.07 K/mm3 (4.00-11.30)
[2020-11-03 08:39] LABS: Anion Gap 6 mmol/L (6-16); Blood Urea Nitrogen 3 mg/dL (8-24); Bun/Creatinine Ratio 6.6 (12.0-20.0); CO2, Blood 25 mmol/L (21-32); Calcium, Blood 7.8 mg/dL (8.5-10.1); Chloride, Blood 108 mmol/L (98-108); Creatinine, Blood 0.45 mg/dL (0.40-1.00); Glomerular Filtration Rate >60 (60-); Glucose, Blood 102 mg/dL (70-99); Potassium, Blood 2.7 mmol/L (3.5-5.5); Sodium, Blood 139 mmol/L (136-145)
[2020-11-03 09:27] LABS: Ketones, Urine 3+ (Neg)
--- NOTE | 2020-11-03 18:13 | NUR ---
SHIFT SUMMARY PATIENT ALERT AND ORIENTED THROUGHOUT SHIFT. MEDICATED FOR NAUSEA AND PAIN PRN. IV FLUIDS RUNNING. ABLE TO TOLERATE ICE CHIPS AND SMALL BITES OF BANANA AND ROLL. INDEPENDENT TO BATHROOM. SIGNIFICANT OTHER PRESENT IN ROOM THROUGHOUT MOST OF DAY. VOIDING WELL.
[2020-11-04 04:25] LABS: Ketones, Urine Neg (Neg)
--- NOTE | 2020-11-04 04:28 | NUR ---
SHIFT SUMMARY PT IS A/O X4, IND IN ROOM. NAUSEA MANAGED WITH ZOFRAN AND REGLAN PRN PER ORDERS. PT C/O PAIN THIS AM AROUND 0400 WITH EPISODE OF EMESIS. MED WITH MORPHINE PER ORDER. PT HAD PREVIOUSLY BEEN TOLERATING SMALL SIPS OF WATER W/O EMESIS. WCTM. IV FLUIDS INFUSING OVERNIGHT. PT RESTING AT THIS TIME, CALL LIGHT IN REACH.
[2020-11-04 04:54] LABS: Anion Gap 6 mmol/L (6-16); Blood Urea Nitrogen 4 mg/dL (8-24); Bun/Creatinine Ratio 9.3 (12.0-20.0); CO2, Blood 25 mmol/L (21-32); Calcium, Blood 8.2 mg/dL (8.5-10.1); Chloride, Blood 110 mmol/L (98-108); Creatinine, Blood 0.43 mg/dL (0.40-1.00); Glomerular Filtration Rate >60 (60-); Glucose, Blood 87 mg/dL (70-99); Potassium, Blood 3.3 mmol/L (3.5-5.5); Sodium, Blood 141 mmol/L (136-145)
--- NOTE | 2020-11-04 09:44 | NUR ---
PT HAS HAD 5 SMALL BOUTS OF EMESIS THIS AM WITH INCREASING ABD PAIN. EMESIS 10-20ML CLEAR LIQUID WITH LAST BOUT BEING YELLOW AND APPROX 20ML. PT HAS RECIEVED ZOFRAN, PHENERGAN, AND REGLAN PER EMAR. MORPHINE PER EMAR FOR PAIN. PT REPORTS CURRENTLY NO RELIEF FROM PAIN OR NAUSEA. SHE HAS BEEN SITTING UP IN BED AND ROCKING. SPOKE WITH NATHEN MCKENZIE. WILL GIVE IV ATIVAN HELP RELIEVE SYMPTOMS. CURRENTLY NEW IV ACCESS BEING INITIATED.
--- NOTE | 2020-11-04 11:36 | NUR ---
pt reporting pain 7/10 in abd and nausea continues despite medication. spoke with jagjit martinez. she will come in to see patient. pt reports feeling very down at thsi time and is trying to sleep. call light is in reach and patient will call if she her nausea or pain worsens.
--- NOTE | 2020-11-04 16:34 | NUR ---
SHIFT SUMMARY PT AA0X4, IND IN ROOM. IV FLUIDS INFUSING PER EMAR. PT HAS BEEN REPORTING EXTREME NAUSEA DURING SHIFT. MEDICATED PER EMAR FOR NAUSEA WITH LITTLE RELIEF. PAIN ALSO RATED AT A 10/10 UNTIL DILAUDID GIVEN PER EMAR. MEDICATED WITH ATIVAN AND BENADRYL PER EMAR. PT WAS ABLE TO SLEEP FROM APPROX [phone]. SHE WOKE AND RATED PAIN AND NAUSEA A 0. TOLERATED SIPS OF WATER AND PEDIALYTE. DENIED NAUSEA WITH FLUIDS, ATTEMPTED TO EAT SOLID FOODS, AFTER TWO BITES OF A BANANA THE PAIN AND NAUSEA RETURNED. MEDICATED WITH REGLAN, PHENERGAN AND ZOFRAN, DILAUDID FOR PAIN. CURRENTLY RESTING IN BED AND REPORTS SLIGHT IMPROVEMENT OF PAIN AND NAUSEA. PLAN IS TO ABOID EATING SOLID FOODS FOR THE REST OF THE NIGHT AND REASSESS PER PROVIDER RECCOMENDATION IN THE AM.
--- NOTE | 2020-11-05 04:53 | NUR ---
SHIFT SUMMARY PT IS A/O X4, IND IN ROOM. TAKING MULTIPLE ANTIEMETICS, ATIVAN, AND DILAUDED IN EFFORT TO MANAGE NAUSEA AND PAIN. PT HAS BEEN ABLE TO TOLERATE SMALL SIPS OF WATER OVERNIGHT. NO EMESIS SO FAR THIS SHIFT. PT REPORTED HAVING A BM WHICH CAUSED PAIN TO INCREASE. SHE HAS BEEN AMBULATING, HAD A SHOWER THIS SHIFT, AND WAS ABLE TO GET SOME SLEEP AFTER TAKING AMBIEN. IV FLUIDS INFUSING OVERNIGHT. S/O AT BEDSIDE OVERNIGHT. PT IS RESTING AT THIS TIME, CALL LIGHT IN REACH.
--- NOTE | 2020-11-05 10:42 | NUR ---
PT REPORTS STOMACH PAIN RESOLVED. MEDICATED PER ORDERS W/CARAFATE. PROVIDED APPLE JUICE PER PT REQUEST AND PROVIDED GLASS OF PEDIALYTE. PT PLANNING TO TRY TO EAT BANANA. CALL LIGHT IN REACH.
--- NOTE | 2020-11-05 18:06 | NUR ---
SUMMARY PT TOLERATED FLUIDS AND SMALL AMOUNTS OF FOOD T/O SHIFT. NO BOUTS OF EMESIS SO FAR THIS SHIFT. MEDICATED PER ORDERS T/O SHIFT FOR NAUSEA. MEDICATED ONCE THIS AM FOR PAIN. PT EMOTIONAL AND TEARFUL AT TIMES. ANXIOUS TO GO HOME TO SEE CHILDREN. PLEASANT AND COOPERATIVE. CALL LIGHT IN REACH. INDEPENDENT IN ROOM.
--- NOTE | 2020-11-05 22:44 | NUR ---
PT APPEARS TO BE SLEEPING IN BED. EYES CLOSED, RESP E/U.
--- NOTE | 2020-11-06 07:42 | NUR ---
PT VSS T/O NIGHT. PT JULIAN LIQ PO, NO SIG FOOD INTAKE THIS SHIFT. PT REP NAUSEA, NO EMESIS. PT REP HAVING DIARRHEA X2. PT REP PAIN JULIAN, DECLINED NEED FOR PAIN MEDS. PT REP HAVING SLEPT WELL FOR SEVERAL HOURS AFTER AMBIEN, DID AWAKE ANXIOUS AND EMOTIONAL R/T NAUSEA; ATIVAN GIVEN PER PT REQ. PT INDEP IN ROOM, IS EMOTIONAL AT TIMES R/T PROLONGED SICKNESS AND HOSP STAY. SUPPORT PROVIDED PRN. CHASITY MCKENZIE IN THIS AM; UIPDATED ON PT NIGHT. PLAN TO D/C HOME TODAY.
--- NOTE | 2020-11-06 10:47 | NUR ---
DISCHARGED REVIEWED DC PAPERWORK W/PT; VERBALIZED UNDERSTANDING. DC'D IV, CATHETER INTACT. PT LEFT UNIT BY AMBULATION W/POSSESSIONS AND DC PAPERWORK IN HAND, ACCOMPANIED BY S.O.
== END 2020-11-06 10:45 | disposition home or self-care (01) | DRG 833 ==
LOC: ER 09:21 → SURS 09:22
PROVIDERS: Physician Assistant; ADMIT Registered Nurse Community Health
DX: O21.0 Mild hyperemesis gravidarum (principal); Z3A.14 14 weeks gestation of pregnancy
CPT/HCPCS: 36415; 76705; 76801; 80047; 80048; 80053; 81000; 81003; 83690; 85014; 85025; 96361; 96365; 96366; 96374; 96375; 96376; 99284-25; 99285-25; A9270; C9113; G0378; J1170; J1200; J2001; J2060; J2270; J2405; J2550; J2765; J2920; J2930; J3480; J7030; J7050; J7060; J7120

== ENCOUNTER → 2021-02-12 | Outpatient (CLI) | payer OTHER ==
[2021-02-12 19:51] LABS: Hematocrit 34.5 % (33.0-51.0); Hemoglobin 11.8 g/dL (11.5-16.0)
== END | disposition home or self-care (01) ==
LOC: LAB 15:50 → LAB SHORT 15:50
PROVIDERS: Family Medicine
DX: Z33.1 Pregnant state, incidental (principal)
CPT/HCPCS: 83036; 85014; 85018

== ENCOUNTER → 2021-04-02 | Outpatient (CLI) | payer OTHER | LOC: LAB 08:40 → LAB SHORT 08:40 | DX: Z34.91 Encounter for supervision of normal pregnancy, unspecified, first trimester (principal) | CPT/HCPCS: 87081; 87150 ==

== ENCOUNTER → 2021-06-05 | Outpatient (CLI) | payer OTHER ==
[2021-06-06 09:44] LABS: Candida species (DNA Probe) Negative (NEGATIVE); G. vaginalis (DNA Probe) Negative (NEGATIVE); T. vaginalis (DNA Probe) Negative (NEGATIVE)
== END ==
LOC: LAB SHORT 13:08 → LAB 13:08
PROVIDERS: Pediatrics Pediatric Cardiology
DX: N89.8 Other specified noninflammatory disorders of vagina (principal)
CPT/HCPCS: 87480; 87510; 87660

== ENCOUNTER 2022-09-16 23:00 | Emergency (ER) | payer OTHER ==
[~2022-09-16] VITALS: Ht 167.6 cm; Wt 74.8 kg
[2022-09-17] MEDS ORDERED: ONDA4ODT MM (01:40)
== END 2022-09-17 02:20 | disposition home or self-care (01) ==
LOC: ER 23:00
DX: R11.2 Nausea with vomiting, unspecified (principal)
CPT/HCPCS: 96361; 96374; 96375; 99283-25; A9270; J1200; J1630; J1885; J2405; J2550; J7030

== ENCOUNTER 2022-12-29 09:55 | Emergency (ER) | payer OTHER ==
[~2022-12-29] VITALS: Ht 167.6 cm; Wt 72.6 kg
[2022-12-29 10:18] VITALS: BP 121/76
[2022-12-29] MEDS ORDERED: LIDO700A20 TOP (13:23)
[2022-12-29] MEDS ORDERED: IBUP800 PO (13:23)
[2022-12-29] MEDS ORDERED: Percocet 5-3251 EACH PO (13:23)
== END 2022-12-29 13:31 | disposition home or self-care (01) ==
LOC: ER 09:55
DX: M54.41 Lumbago with sciatica, right side (principal)
CPT/HCPCS: 96372; 99283-25; A9270; J1885

== ENCOUNTER 2023-06-10 19:45 | Emergency (ER) | payer OTHER ==
[~2023-06-10] VITALS: Ht 167.6 cm; Wt 77.1 kg
[~2023-06-10 19:45] MED LIST changes: +IBUP800 PO; +LIDO700A20 TOP; +NEURONTIN300 MG PO; +Percocet 5-3251 EACH PO
[2023-06-10 20:36] VITALS: BP 145/74
[2023-06-10] MEDS ORDERED: PRED20 PO (21:37)
[2023-06-10] MEDS ORDERED: ALBU90OI INH (21:37)
== END 2023-06-10 21:52 | disposition home or self-care (01) ==
LOC: ER 19:45
DX: R09.1 Pleurisy (principal)
CPT/HCPCS: 71045; 93005; 93010; 96372; 99285-25; J1100; J1885

== ENCOUNTER → 2023-06-21 | Outpatient (CLI) | payer OTHER ==
[~2023-06-21] MED LIST changes: +ALBU90OI INH; +PRED20 PO
== END | disposition home or self-care (01) ==
LOC: LAB SHORT 17:19 → LAB 17:19
DX: R10.12 Left upper quadrant pain (principal)
CPT/HCPCS: 83690

== ENCOUNTER → 2023-06-23 | Outpatient (CLI) | payer OTHER ==
[2023-06-23 14:59] LABS: Adenovirus F 40/41 Not Detected (NOT DETECT); Astrovirus Not Detected (NOT DETECT); Campylobacter Sp Not Detected (NOT DETECT); Cryptosporidium Not Detected (NOT DETECT); Cyclospora Cayetanensis Not Detected (NOT DETECT); E. Coli O157 Not Detected (NOT DETECT); Entamoeba Histolytica Not Detected (NOT DETECT); Enteroaggregative E. coli-EAEC Not Detected (NOT DETECT); Enteropathogenic E. coli-EPEC Not Detected (NOT DETECT); Enterotoxigenic E. coli-ETEC Not Detected (NOT DETECT); Giardia Lamblia Not Detected (NOT DETECT); Norovirus GI/GII Not Detected (NOT DETECT); Plesiomonas Shigelloides Not Detected (NOT DETECT); Rotavirus A Not Detected (NOT DETECT); Salmonella Sp Not Detected (NOT DETECT); Sapovirus Not Detected (NOT DETECT); Shiga Toxin-prod E. coli-STEC Not Detected (NOT DETECT); Shigella/Enteroin E. coli-EIEC Not Detected (NOT DETECT); Vibrio Cholerae Not Detected (NOT DETECT); Vibrio Sp Not Detected (NOT DETECT); Yersinia Enterocolitica Not Detected (NOT DETECT)
== END ==
LOC: LAB SHORT 10:20 → LAB 10:20
PROVIDERS: Nurse Practitioner Family
DX: R19.5 Other fecal abnormalities (principal)
CPT/HCPCS: 83993; 87507

== ENCOUNTER 2023-06-30 11:00 | Emergency (ER) | payer OTHER ==
[~2023-06-30] VITALS: Ht 167.6 cm; Wt 77.1 kg
[2023-06-30 11:18] VITALS: BP 126/91
== END 2023-06-30 16:15 | disposition home or self-care (01) ==
LOC: ER 11:00
DX: R51.9 Headache, unspecified (principal); Z79.899 Other long term (current) drug therapy
CPT/HCPCS: 70450; 96361; 96374; 96375; 99284-25; J0780; J1200; J1885; J7030

== ENCOUNTER 2024-07-13 00:43 | Emergency (ER) | payer OTHER ==
[~2024-07-13] VITALS: Ht 167.6 cm; Wt 83.9 kg
[2024-07-13 01:36] LABS: BASOPHILS ABSOLUTE AUTO 0.09 K/mm3 (0.00-0.23); BASOPHILS PERCENT AUTO 1 % (0-2); EOSINOPHILS ABSOLUTE AUTO 0.54 K/mm3 (0.00-0.68); EOSINOPHILS PERCENT AUTO 5 % (0-6); Hematocrit 42.3 % (33.0-51.0); Hemoglobin 14.5 g/dL (11.5-16.0); IMMATURE GRAN ABSOLUTE AUTO 0.05 K/mm3 (0.00-0.10); IMMATURE GRAN PERCENT AUTO 0 % (0-1); LYMPHOCYTES ABSOLUTE AUTO 2.07 K/mm3 (0.84-5.20); LYMPHOCYTES PERCENT AUTO 17 % (21-46); MONOCYTES ABSOLUTE AUTO 0.49 K/mm3 (0.16-1.47); MONOCYTES PERCENT AUTO 4 % (4-13); Mean Corpuscular HGB 29.4 pg (26.0-34.0); Mean Corpuscular HGB Conc 34.3 g/dL (31.5-36.5); Mean Corpuscular Volume 86 fL (80-100); Mean Platelet Volume 10.1 fL (9.1-12.4); NEUTROPHILS ABSOLUTE AUTO 8.87 K/mm3 (1.96-9.15); NEUTROPHILS PERCENT AUTO 73 % (41-73); Platelet Count 277 K/mm3 (150-400); RDW Coefficient Variation 11.9 % (11.7-14.2); RDW Standard Deviation 37.3 fL (35.1-46.3); Red Blood Cell Count 4.93 M/mm3 (3.80-5.20); White Blood Cell Count 12.11 K/mm3 (4.00-11.30)
[2024-07-13 01:56] LABS: Albumin, Blood 4.3 g/dL (3.4-5.0); Albumin/Globulin Ratio 1.1 (0.8-1.8); Bun/Creatinine Ratio 16.5 (12.0-20.0); Calcium, Blood 9.8 mg/dL (8.5-10.1); Creatinine, Blood 0.67 mg/dL (0.40-1.00); Total Protein, Blood 8.3 g/dL (6.4-8.2)
[2024-07-13] MEDS ORDERED: Ondansetron HCl 2 MG / ML 2ML Vial ONE (01:56)
[2024-07-13] MEDS ORDERED: Lactated Ringer's 1,000 ML IV ONE (02:25)
[2024-07-13] MEDS ORDERED: Droperidol 5 mg/2 ml Vial IV ONE (02:25)
[2024-07-13 03:50] LABS: Source, Urine Clean Catch
[2024-07-13 04:03] LABS: Bilirubin, Urine Neg (Neg); Blood, Urine 1+ (Neg); Glucose Qualitative, Urine Neg (Neg); Ketones, Urine 4+ (Neg); Leukocyte Esterase, Urine Neg (Neg); Nitrite, Urine Neg (Neg); Protein, Urine 1+ (Neg); Specific Gravity, Urine 1.005 (1.003-1.022); Urobilinogen, Urine NORM (Normal)
[2024-07-13 04:42] LABS: Appearance, Urine Clear (Clear); Color, Urine Pale Yellow (P-Yellow); White Blood Cells, Urine 0-2 /hpf (0-5)
[2024-07-13 04:43] LABS: Bacteria Few /hpf; Red Blood Cells, Urine 0-2 /hpf (0-2); Squamous Epithelial Cells Few /hpf (Few)
[2024-07-13] MEDS ORDERED: Metoclopramide HCl 5MG / ML 2ML Vial IV ONE (05:00)
[2024-07-13] MEDS ORDERED: METO5A PO (05:01)
[2024-07-13] MEDS ORDERED: DICY20 PO (05:01)
[2024-07-13 05:08] VITALS: BP 133/87
== END 2024-07-13 05:08 | disposition home or self-care (01) ==
LOC: ER 00:43
PROVIDERS: Student in an Organized Health Care Education/Training Program
DX: N83.201 Unspecified ovarian cyst, right side (principal); K52.9 Noninfective gastroenteritis and colitis, unspecified; Z79.52 Long term (current) use of systemic steroids
CPT/HCPCS: 74177; 80053; 81001; 84703; 85025; 96361; 96374-59; 96375; 99284-25; J1790; J2405; J2765; J7120; Q9967

== ENCOUNTER → 2024-07-15 | Outpatient (CLI) | payer OTHER ==
[~2024-07-15] MED LIST changes: +DICY20 PO
[2024-07-15 10:46] LABS: BASOPHILS ABSOLUTE AUTO 0.07 K/mm3 (0.00-0.23); BASOPHILS PERCENT AUTO 1 % (0-2); EOSINOPHILS ABSOLUTE AUTO 0.06 K/mm3 (0.00-0.68); EOSINOPHILS PERCENT AUTO 1 % (0-6); Hematocrit 40.4 % (33.0-51.0); Hemoglobin 13.8 g/dL (11.5-16.0); IMMATURE GRAN ABSOLUTE AUTO 0.06 K/mm3 (0.00-0.10); IMMATURE GRAN PERCENT AUTO 1 % (0-1); LYMPHOCYTES ABSOLUTE AUTO 1.34 K/mm3 (0.84-5.20); LYMPHOCYTES PERCENT AUTO 13 % (21-46); MONOCYTES ABSOLUTE AUTO 0.73 K/mm3 (0.16-1.47); MONOCYTES PERCENT AUTO 7 % (4-13); Mean Corpuscular HGB 29.5 pg (26.0-34.0); Mean Corpuscular HGB Conc 34.2 g/dL (31.5-36.5); Mean Corpuscular Volume 86 fL (80-100); Mean Platelet Volume 9.8 fL (9.1-12.4); NEUTROPHILS PERCENT AUTO 79 % (41-73); Platelet Count 254 K/mm3 (150-400); Red Blood Cell Count 4.68 M/mm3 (3.80-5.20); White Blood Cell Count 10.76 K/mm3 (4.00-11.30)
[2024-07-15 10:57] LABS: Albumin, Blood 4.2 g/dL (3.4-5.0); Albumin/Globulin Ratio 1.1 (0.8-1.8); Bilirubin, Total 1.1 mg/dL (0.1-1.0); Bun/Creatinine Ratio 14.1 (12.0-20.0); Calcium, Blood 9.1 mg/dL (8.5-10.1); Creatinine, Blood 0.85 mg/dL (0.40-1.00); Globulin, Blood 3.9 g/dL (2.2-4.0); Potassium, Blood 3.5 mmol/L (3.5-5.5); Total Protein, Blood 8.1 g/dL (6.4-8.2)
== END | disposition home or self-care (01) ==
LOC: LAB 10:41 → LAB SHORT 10:41
PROVIDERS: Chiropractor
DX: E86.0 Dehydration (principal)
CPT/HCPCS: 80053; 85025

== ENCOUNTER → 2024-07-20 | Outpatient (CLI) | payer OTHER | END | disposition home or self-care (01) | LOC: LAB 18:13 → LAB SHORT 18:13 | DX: R30.0 Dysuria (principal) | CPT/HCPCS: 87086 ==

== ENCOUNTER 2024-08-20 07:31 | Emergency (ER) | payer OTHER ==
[~2024-08-20] VITALS: Ht 167.6 cm; Wt 79.4 kg
[2024-08-20] MEDS ORDERED: Lidocaine 2% Viscous Soln 15 ML UDC PO ONE (09:20)
[2024-08-20] MEDS ORDERED: Mag Hydrox/AL Hydrox/Simeth 30 ML UDC PO ONE (09:20)
[2024-08-20] MEDS ORDERED: Haloperidol Lactate Inj. 5 MG/ML Injection IV ONE (09:20)
[2024-08-20] MEDS ORDERED: Famotidine 20 MG Tab PO ONE (09:20)
[2024-08-20 09:40] LABS: BASOPHILS ABSOLUTE AUTO 0.08 K/mm3 (0.00-0.23); BASOPHILS PERCENT AUTO 1 % (0-2); EOSINOPHILS ABSOLUTE AUTO 0.49 K/mm3 (0.00-0.68); EOSINOPHILS PERCENT AUTO 4 % (0-6); Hematocrit 42.3 % (33.0-51.0); Hemoglobin 14.6 g/dL (11.5-16.0); IMMATURE GRAN ABSOLUTE AUTO 0.05 K/mm3 (0.00-0.10); IMMATURE GRAN PERCENT AUTO 0 % (0-1); LYMPHOCYTES ABSOLUTE AUTO 2.41 K/mm3 (0.84-5.20); LYMPHOCYTES PERCENT AUTO 19 % (21-46); MONOCYTES ABSOLUTE AUTO 0.72 K/mm3 (0.16-1.47); MONOCYTES PERCENT AUTO 6 % (4-13); Mean Corpuscular HGB 29.7 pg (26.0-34.0); Mean Corpuscular HGB Conc 34.5 g/dL (31.5-36.5); Mean Corpuscular Volume 86 fL (80-100); Mean Platelet Volume 10.9 fL (9.1-12.4); NEUTROPHILS ABSOLUTE AUTO 8.78 K/mm3 (1.96-9.15); NEUTROPHILS PERCENT AUTO 70 % (41-73); Platelet Count 300 K/mm3 (150-400); RDW Coefficient Variation 12.2 % (11.7-14.2); RDW Standard Deviation 38.3 fL (35.1-46.3); Red Blood Cell Count 4.91 M/mm3 (3.80-5.20); White Blood Cell Count 12.53 K/mm3 (4.00-11.30)
[2024-08-20 09:46] LABS: Albumin, Blood 4.6 g/dL (3.4-5.0); Albumin/Globulin Ratio 1.3 (0.8-1.8); Bilirubin, Total 1.1 mg/dL (0.1-1.0); Bun/Creatinine Ratio 15.2 (12.0-20.0); Calcium, Blood 10.2 mg/dL (8.5-10.1); Creatinine, Blood 0.66 mg/dL (0.40-1.00); Globulin, Blood 3.6 g/dL (2.2-4.0); Total Protein, Blood 8.2 g/dL (6.4-8.2)
[2024-08-20] MEDS ORDERED: NS 1,000 ML IV SCH (10:15)
[2024-08-20] MEDS ORDERED: Metoclopramide HCl 5MG / ML 2ML Vial IV ONE (10:15)
[2024-08-20] MEDS ORDERED: Promethazine HCl 25 MG Tab PO ONE (11:50)
[2024-08-20 13:11] VITALS: BP 145/84
== END 2024-08-20 13:12 | disposition home or self-care (01) ==
LOC: ER 07:31
PROVIDERS: Student in an Organized Health Care Education/Training Program
DX: R11.2 Nausea with vomiting, unspecified (principal); R10.13 Epigastric pain; R10.12 Left upper quadrant pain; Z79.52 Long term (current) use of systemic steroids
CPT/HCPCS: 80053; 85025; 93005; 93010; 96361; 96374; 96375; 99284-25; A9270; J1630; J2765; J7030

== ENCOUNTER 2025-07-14 01:48 | Emergency (ER) | payer OTHER ==
[~2025-07-14] VITALS: Ht 165.1 cm; Wt 79.4 kg
[2025-07-14] MEDS ORDERED: Ondansetron HCl 2 MG / ML 2ML Vial IV PRN (05:50)
[2025-07-14] MEDS ORDERED: NS 1,000 ML IV SCH (05:55)
[2025-07-14 06:00] LABS: BASOPHILS ABSOLUTE AUTO 0.03 K/mm3 (0.00-0.23); BASOPHILS PERCENT AUTO 0 % (0-2); EOSINOPHILS ABSOLUTE AUTO 0.02 K/mm3 (0.00-0.68); EOSINOPHILS PERCENT AUTO 0 % (0-6); Hematocrit 39.4 % (33.0-51.0); Hemoglobin 13.9 g/dL (11.5-16.0); IMMATURE GRAN ABSOLUTE AUTO 0.03 K/mm3 (0.00-0.10); IMMATURE GRAN PERCENT AUTO 0 % (0-1); LYMPHOCYTES ABSOLUTE AUTO 1.17 K/mm3 (0.84-5.20); LYMPHOCYTES PERCENT AUTO 9 % (21-46); MONOCYTES ABSOLUTE AUTO 0.29 K/mm3 (0.16-1.47); MONOCYTES PERCENT AUTO 2 % (4-13); Mean Corpuscular HGB Conc 35.3 g/dL (31.5-36.5); Mean Corpuscular Volume 84 fL (80-100); NEUTROPHILS ABSOLUTE AUTO 10.94 K/mm3 (1.96-9.15); NEUTROPHILS PERCENT AUTO 88 % (41-73); NRBC ABSOLUTE 0.00 K/mm3 (0.00-0.02); NRBC Auto 0.0 /100 WBC (0.0-0.2); Platelet Count 285 K/mm3 (150-400); RDW Coefficient Variation 12.3 % (11.7-14.2); RDW Standard Deviation 37.2 fL (35.1-46.3)
[2025-07-14 06:17] LABS: Alanine Aminotransfer (ALT/SGP 31.0 U/L (12-78); Albumin, Blood 4.4 g/dL (3.4-5.0); Albumin/Globulin Ratio 1.1 (0.8-1.8); Anion Gap 11.0 mmol/L (3-11); Aspartate Aminotrans (AST/SGOT 18.0 U/L (12-37); Bilirubin, Total 1.1 mg/dL (0.1-1.0); Blood Urea Nitrogen 12.0 mg/dL (8-24); CO2, Blood 21.0 mmol/L (21-32); Calcium, Blood 9.2 mg/dL (8.5-10.1); Chloride, Blood 107.0 mmol/L (98-108); Creatinine, Blood 0.6 mg/dL (0.40-1.00); Globulin, Blood 4.0 g/dL (2.2-4.0); Glucose, Blood 123.0 mg/dL (70-99); Potassium, Blood 3.4 mmol/L (3.5-5.5); Sodium, Blood 136.0 mmol/L (136-145); Total Protein, Blood 8.4 g/dL (6.4-8.2)
[2025-07-14] MEDS ORDERED: Morphine Sulfate 4 MG/1 ML Injection IV ONE (07:30)
[2025-07-14] MEDS ORDERED: Metoclopramide HCl 5MG / ML 2ML Vial IV ONE (07:55)
[2025-07-14 07:57] LABS: Source, Urine Clean Catch
[2025-07-14 08:00] LABS: Bilirubin, Urine Neg (Neg); Color, Urine Yellow (P-Yellow); Glucose Qualitative, Urine Neg (Neg); Ketones, Urine 4+ (Neg); Leukocyte Esterase, Urine Neg (Neg); Protein, Urine 2+ (Neg); Specific Gravity, Urine 1.010 (1.003-1.022); Urobilinogen, Urine NORM (Normal)
[2025-07-14 08:13] LABS: White Blood Cells, Urine 0-2 /hpf (0-5)
[2025-07-14] MEDS ORDERED: DICY20 PO (08:44)
[2025-07-14] MEDS ORDERED: METO10 PO (08:44)
[2025-07-14 08:45] VITALS: BP 103/47
[2025-07-15] MEDS ORDERED: PROMETHEGAN PR (19:00)
[2025-07-15] MEDS ORDERED: ONDA4 PO (19:00)
[2025-07-15] MEDS ORDERED: PROM25 PO (19:01)
== END 2025-07-14 08:55 | disposition home or self-care (01) ==
LOC: ER 01:48
PROVIDERS: Emergency Medicine; Student in an Organized Health Care Education/Training Program
DX: R11.2 Nausea with vomiting, unspecified (principal); R10.9 Unspecified abdominal pain; Z79.52 Long term (current) use of systemic steroids; Z79.899 Other long term (current) drug therapy
CPT/HCPCS: 74177; 80053; 81001; 81025; 83690; 85025; 96361; 96374-59; 96375; 99284-25; A9270; J2270; J2405; J2765; J7030; Q9967

== ENCOUNTER 2025-07-15 10:19 | Inpatient (IN) | payer OTHER ==
[~2025-07-15] VITALS: Ht 165.1 cm; Wt 82.2 kg
[2025-07-15] MEDS ORDERED: NS 1,000 ML IV SCH (10:45)
[2025-07-15] MEDS ORDERED: Pantoprazole Sodium 40 MG Injection IV ONE (10:50)
[2025-07-15 11:47] LABS: BASOPHILS ABSOLUTE AUTO 0.11 K/mm3 (0.00-0.23); BASOPHILS PERCENT AUTO 1 % (0-2); EOSINOPHILS ABSOLUTE AUTO 0.46 K/mm3 (0.00-0.68); EOSINOPHILS PERCENT AUTO 4 % (0-6); Hematocrit 41.4 % (33.0-51.0); Hemoglobin 14.1 g/dL (11.5-16.0); IMMATURE GRAN ABSOLUTE AUTO 0.05 K/mm3 (0.00-0.10); IMMATURE GRAN PERCENT AUTO 0 % (0-1); LYMPHOCYTES ABSOLUTE AUTO 2.05 K/mm3 (0.84-5.20); LYMPHOCYTES PERCENT AUTO 16 % (21-46); MONOCYTES ABSOLUTE AUTO 0.68 K/mm3 (0.16-1.47); MONOCYTES PERCENT AUTO 5 % (4-13); Mean Corpuscular HGB Conc 34.1 g/dL (31.5-36.5); Mean Corpuscular Volume 88 fL (80-100); NEUTROPHILS ABSOLUTE AUTO 9.74 K/mm3 (1.96-9.15); NEUTROPHILS PERCENT AUTO 74 % (41-73); NRBC ABSOLUTE 0.00 K/mm3 (0.00-0.02); NRBC Auto 0.0 /100 WBC (0.0-0.2); Platelet Count 267 K/mm3 (150-400); RDW Coefficient Variation 12.3 % (11.7-14.2); RDW Standard Deviation 39.7 fL (35.1-46.3)
[2025-07-15 12:08] LABS: Alanine Aminotransfer (ALT/SGP 31 U/L (12-78); Albumin, Blood 4.1 g/dL (3.4-5.0); Albumin/Globulin Ratio 1.1 (0.8-1.8); Anion Gap 15 mmol/L (3-11); Aspartate Aminotrans (AST/SGOT 21 U/L (12-37); Beta HCG, Quantitative, Serum <1 mIU/mL (0-3); Bilirubin, Total 1.1 mg/dL (0.1-1.0); Blood Urea Nitrogen 15 mg/dL (8-24); CO2, Blood 18 mmol/L (21-32); Calcium, Blood 8.9 mg/dL (8.5-10.1); Chloride, Blood 110 mmol/L (98-108); Creatinine, Blood 0.63 mg/dL (0.40-1.00); Globulin, Blood 3.7 g/dL (2.2-4.0); Glucose, Blood 107 mg/dL (70-99); Potassium, Blood 3.6 mmol/L (3.5-5.5); Sodium, Blood 139 mmol/L (136-145); Total Protein, Blood 7.8 g/dL (6.4-8.2)
[2025-07-15] MEDS ORDERED: Ondansetron HCl 2 MG / ML 2ML Vial IV ONE (12:10)
[2025-07-15] MEDS ORDERED: Morphine Sulfate 4 MG/1 ML Injection IV ONE (12:10)
[2025-07-15 12:52] LABS: Source, Urine Clean Catch
[2025-07-15 12:56] LABS: Bilirubin, Urine Neg (Neg); Glucose Qualitative, Urine Neg (Neg); Ketones, Urine 4+ (Neg); Leukocyte Esterase, Urine Neg (Neg); Protein, Urine Neg (Neg); Specific Gravity, Urine 1.015 (1.003-1.022); Urobilinogen, Urine NORM (Normal)
[2025-07-15] MEDS ORDERED: Metoclopramide HCl 5MG / ML 2ML Vial IV ONE (13:10)
[2025-07-15 13:21] LABS: Color, Urine Pale Yellow (P-Yellow)
[2025-07-15] MEDS ORDERED: Metoclopramide HCl 5MG / ML 2ML Vial IV PRN (14:05)
[2025-07-15] MEDS ORDERED: Ondansetron HCl 2 MG / ML 2ML Vial IV PRN (14:05)
[2025-07-15] MEDS ORDERED: FLU VACC TS2025-26(6MOS UP)/PF 45 MCG/0.5 ML SYRINGE IM SCH (14:05)
[2025-07-15] MEDS ORDERED: HYDROmorphone HCl/Pf 1MG SYR IV PRN ×2 (14:10→17:25)
[2025-07-15 16:28] VITALS: BP 106/64
[2025-07-15 16:41] LABS: pH Blood Venous 7.37 (7.34-7.37)
[2025-07-15] MEDS ORDERED: ONDA4 PO (19:00)
[2025-07-15] MEDS ORDERED: PROMETHEGAN PR (19:00)
[2025-07-15] MEDS ORDERED: PROM25 PO (19:01)
[2025-07-15 19:53] VITALS: BP 100/75
--- NOTE | 2025-07-15 20:09 | NUR ---
SHIFT SUMMARY- PT IS ALERT, ORIENTED AND INDEPENDENT IN THE ROOM. 20G IV IN THE LEFT HAND RUNNING LR AT 150 PER EMAR. PT HAS HAD NO C/O NAUSEA SINCE SHE ARRIVED ON MED FLOOR, THOUGH SHE LOOKS IF SHE COULD BECOME SO AT ANY MOMENT. SCOPOLAMINE PATCH PLACED PER EMAR. PT STATES IT SEEMS TO BE HELPING BUT SHE FEELS A LITTLE OFF. BEDSIDE REPORT COMPLETED WITH NIGHT RN'S, ADMISSION COMPLETED, NO S&S OF DISTRESS NOTED ON ROOM AIR.
--- NOTE | 2025-07-16 02:35 | NUR ---
SHIFT SUMMARY PT IS ALERT AND ORIENTED. COOPERATIVER WITH CARES. INDEPENDENT IN ROOM. L HAND PIV WITH LR RUNNING @ 150ML/HR. ON ROOM AIR. TOLERATING A CLEAR LIQUID DIET. PT HAD NO COMPLAINTS OF NAUSEA/VOMITING THROUGHOUT SHIFT. SCOPALAMINE PATCH TO LEFT EAR WHICH SEEMS TO BE HELPFUL. VSS. BED IN LOWEST POSITION. CALL LIGHT IN REACH.
[2025-07-16 03:52] VITALS: BP 112/66
[2025-07-16 04:59] LABS: BASOPHILS ABSOLUTE AUTO 0.05 K/mm3 (0.00-0.23); BASOPHILS PERCENT AUTO 1 % (0-2); EOSINOPHILS ABSOLUTE AUTO 0.30 K/mm3 (0.00-0.68); EOSINOPHILS PERCENT AUTO 3 % (0-6); Hematocrit 34.9 % (33.0-51.0); Hemoglobin 11.8 g/dL (11.5-16.0); IMMATURE GRAN ABSOLUTE AUTO 0.02 K/mm3 (0.00-0.10); IMMATURE GRAN PERCENT AUTO 0 % (0-1); LYMPHOCYTES ABSOLUTE AUTO 2.93 K/mm3 (0.84-5.20); LYMPHOCYTES PERCENT AUTO 34 % (21-46); MONOCYTES ABSOLUTE AUTO 0.55 K/mm3 (0.16-1.47); MONOCYTES PERCENT AUTO 6 % (4-13); Mean Corpuscular HGB Conc 33.8 g/dL (31.5-36.5); Mean Corpuscular Volume 87 fL (80-100); NEUTROPHILS ABSOLUTE AUTO 4.86 K/mm3 (1.96-9.15); NEUTROPHILS PERCENT AUTO 56 % (41-73); NRBC ABSOLUTE 0.00 K/mm3 (0.00-0.02); NRBC Auto 0.0 /100 WBC (0.0-0.2); Platelet Count 215 K/mm3 (150-400); RDW Coefficient Variation 12.2 % (11.7-14.2); RDW Standard Deviation 39.3 fL (35.1-46.3)
[2025-07-16 05:34] LABS: Alanine Aminotransfer (ALT/SGP 23.0 U/L (12-78); Albumin, Blood 3.2 g/dL (3.4-5.0); Albumin/Globulin Ratio 1.0 (0.8-1.8); Anion Gap 9.0 mmol/L (3-11); Aspartate Aminotrans (AST/SGOT 14.0 U/L (12-37); Bilirubin, Total 1.2 mg/dL (0.1-1.0); Blood Urea Nitrogen 8.0 mg/dL (8-24); CO2, Blood 23.0 mmol/L (21-32); Calcium, Blood 8.1 mg/dL (8.5-10.1); Chloride, Blood 110.0 mmol/L (98-108); Creatinine, Blood 0.53 mg/dL (0.40-1.00); Globulin, Blood 3.2 g/dL (2.2-4.0); Glucose, Blood 84.0 mg/dL (70-99); Potassium, Blood 3.3 mmol/L (3.5-5.5); Sodium, Blood 139.0 mmol/L (136-145); Total Protein, Blood 6.4 g/dL (6.4-8.2)
[2025-07-16 07:43] VITALS: BP 140/79
[2025-07-16] MEDS ORDERED: Enoxaparin 40 MG/0.4 ML SYR SC SCH (09:00)
--- NOTE | 2025-07-16 10:10 | NUR ---
CALLED TO PT ROOM PER CALL LIGHT. PT HOLDING EMESIS BAG AND STATES "IM NOT DOING GOOD I NEED SOMETHING TO STOP THROWING UP" APPROX 10 ML YELLOW CLEAR FLUID IN EMESIS BAG, PT REPORTS THREW UP BILE LOOKING EMESIS IN BATHROOM. REPEATS "IM IN A LOT OF PAIN IM NOT DOING GOOD AT ALL" WILL REPORT TO PRIMARY CARE NURSE
--- NOTE | 2025-07-16 10:32 | NUR ---
N/V CALLED DR HARTMANN R/T N/V UNRESPONSIVE TO CURRENT ORDERED MEDICATIONS. ORDER RECEIVED.
--- NOTE | 2025-07-16 15:19 | NUR ---
NOTE PT CALLED. REQUESTED TO GO HOME. OFFERED TO BRING HER BROTH AND CRACKERS TO MAKE SURE HER TUMMY CAN HOLD DOWN FOOD. SHE AGREED.
[2025-07-16] MEDS ORDERED: TRANSDERM-SCOP1 EA13 TD (16:08)
== END 2025-07-16 16:45 | disposition home or self-care (01) | DRG 392 ==
LOC: ER 10:19 → MEDS 10:20 → ENPENDDIS 07-16 15:57 → MEDS 07-16 16:45
PROVIDERS: Student in an Organized Health Care Education/Training Program; ADMIT Family Medicine
DX: R11.16 Cannabis hyperemesis syndrome (principal); E87.20 Acidosis, unspecified; N17.9 Acute kidney failure, unspecified; K29.60 Other gastritis without bleeding; F12.90 Cannabis use, unspecified, uncomplicated; D72.829 Elevated white blood cell count, unspecified; F41.9 Anxiety disorder, unspecified; Z23 Encounter for immunization; Z79.899 Other long term (current) drug therapy; Z79.51 Long term (current) use of inhaled steroids; Z88.8 Allergy status to other drugs, medicaments and biological substances; Z90.49 Acquired absence of other specified parts of digestive tract; Z87.19 Personal history of other diseases of the digestive system; Z79.52 Long term (current) use of systemic steroids
CPT/HCPCS: 36415; 80053; 81003; 82803; 83690; 84702; 85025; 93005; 93010; 96374; 96375; 99284-25; A9270; G0378; J1171; J1790; J2270; J2405; J2470; J2765; J7030; J7120